=== PATIENT | male | born 1970 | race Caucasian/White ===

== ENCOUNTER 2017-04-14 19:53 | Emergency (ER) | payer MEDICAID ==
--- NOTE | 2017-04-14 21:04 | C.PDOC ---
History Of Present Illness 46 y/o male c/o left sided facial numbness x 1 day and paresthesia to the left arm x 1 week. pt later states he has had arm numbness "for a long time" Patient denies fever, chills, facial droop, or any other complaints. Time Seen by Provider: 04/14/17 20:39 Chief Complaint (Nursing): Weakness/Neurological Deficit History Per: Patient History/Exam Limitations: no limitations Onset/Duration Of Symptoms: Days Current Symptoms Are (Timing): Still Present Severity: Mild Recent travel outside of the [place] States: No Additional History Per: Patient Past Medical History Reviewed: Historical Data, Nursing Documentation, Vital Signs Vital Signs: Last Vital Signs Temp 97.6 F 04/14/17 22:53 Pulse 79 04/14/17 22:53 Resp 20 04/14/17 22:53 BP 156/94 H 04/14/17 22:53 Pulse Ox 97 04/14/17 23:22 Family History: States: Unknown Family Hx - Social History Hx Alcohol Use: No Hx Substance Use: No Review Of Systems Except As Marked, All Systems Reviewed And Found Negative. Constitutional: Negative for: Fever, Chills Eyes: Negative for: Vision Change Neurological: Positive for: Numbness (left sided facial numbness and paresthesia to the left arm). Negative for: Change in Speech, Other (Facial droop) Physical Exam - Physical Exam Appears: Non-toxic, No Acute Distress Skin: Warm, Dry Head: Atraumatic, Normacephalic Chest: Symmetrical Cardiovascular: Rhythm Regular, No Murmur Respiratory: Normal Breath Sounds, No Rales, No Rhonchi, No Wheezing Gastrointestinal/Abdominal: Soft, No Tenderness Neurological/Psych: Oriented x3, Normal Speech, Normal Cognition, Normal Motor, Normal Sensation, Other (No focal deficit) Gait: Steady ED Course And Treatment - Laboratory Results Result Diagrams: 04/14/17 21:03 04/14/17 21:03 O2 Sat by Pulse Oximetry: 97 (RA) Pulse Ox Interpretation: Normal Against Medical Advice - AMA Patient Left Against Medical Advice: The patient declines admission to the hospital and wishes to leave the Emergency Department. This action is against my medical advice. This decision was made with informed refusal. The patient was told that admission to the hospital is necessary. Explanation of the reasons why were discussed. The risks of leaving were explained to the patient and include, but are not limited to, worsening of known or currently unknown conditions, permanent disability and from undiagnosed or untreated conditions. The patient has the capacity to make this informed decision and understands my explanation of the current medical problem and risks of leaving. The patient voluntarily accepts these risks and signed an AMA form documenting our conversation. The patient was given the opportunity to ask questions and reconsider. The patient was encouraged to return to the Emergency Department at any time for further care. Medical Decision Making Medical Decision Making: early bells vs cva- pt reports left hand numbness not consistent with bells, however later reports this is "old" Plans: * Blood labs * CT Head w/o * CXR * IV fluids * UA ekg nsr [address] t wave changes normal intrevals 2100: requested pt be observed in hospital for mri r/o cva. refuses. signs ama. states h e 'needs to go home'. advised acute cva not excluded. pt understands rsiks and signs ama Disposition - Disposition Referrals: Rm Trinh MD [Staff Provider] - Disposition: AGAINST MEDICAL ADVICE Disposition Time: 11:20 Condition: STABLE Additional Instructions: follow up with your doctor/specialist. you are declining observation in the hospital. return to er with worsening symptoms or concerns. Prescriptions: Acyclovir [Zovirax] 400 mg PO 5XD #35 tab Prednisone 50 mg PO DAILY #5 tab Instructions: Mercado Palsy (ED), Paresthesia (ED), Against Medical Advice (ED) Forms: [facility] (Swiss) - Clinical Impression Clinical Impression: Numbness - Scribe Statement The provider has reviewed the documentation as recorded by the Scribsushant reyes All medical record entries made by the Bereniceibe were at my direction and personally dictated by me. I have reviewed the chart and agree that the record accurately reflects my personal performance of the history, physical exam, medical decision making, and the department course for this patient. I have also personally directed, reviewed, and agree with the discharge instructions and disposition.
[2017-04-14 21:06] LABS: BASO # 0.1 K/uL (0.0-0.2); BASO % 0.8 % (0.0-2.0); EOS # 0.4 K/uL (0.0-0.7); EOS % 4.2 % (0.0-4.0); HEMATOCRIT 39.3 % (35.0-51.0); LYMPH # 2.2 K/uL (1.0-4.3); LYMPH % 20.6 % (20.0-40.0); MEAN CELL VOLUME 88.9 fL (80.0-94.0); MEAN CORPUSCULAR HEMOGLOBIN 30.5 pg (27.0-31.0); MEAN CORPUSCULAR HGB CONC 34.3 g/dL (33.0-37.0); MEAN PLATELET VOLUME 9.1 fL (7.2-11.7); MONO # 0.8 K/uL (0.0-0.8); MONO % 7.1 % (0.0-10.0); NRBC % 0.1 % (0.0-2.0); RED CELL DISTRIBUTION WIDTH 13.5 % (11.5-14.5); WHITE BLOOD COUNT 10.8 K/uL (4.8-10.8)
[2017-04-14 21:14] LABS: INR 1.1
[2017-04-14 21:34] LABS: ALB/GLOB RATIO 1.2 (1.0-2.1); ALKALINE PHOSPHATASE 84 U/L (38-126); ALT/SGPT 52 U/L (21-72); AST/SGOT 25 U/L (17-59); BILIRUBIN,TOTAL 0.9 mg/dL (0.2-1.3); BLOOD UREA NITROGEN 11 mg/dL (9-20); CALCIUM 8.7 mg/dl (8.6-10.4); CARBON DIOXIDE 25 mmol/L (22-30); CHLORIDE 101 mmol/L (98-107); CHOLESTEROL 169 mg/dL (0-199); GFR AFRICAN-AMERICAN > 60; GLUCOSE,RANDOM 94 mg/dL (75-110); POTASSIUM 3.6 mmol/L (3.6-5.2); SODIUM 137 mmol/L (132-148); TOTAL PROTEIN 7.9 g/dL (6.3-8.3)
--- NOTE | 2017-04-14 21:50 | CT ---
EXAM: CT Head Without Intravenous Contrast EXAM DATE/TIME: 04/14/2017 8:43 PM CLINICAL HISTORY: 46 years old, male; Signs and symptoms; Visual disturbance and weakness, extremity; Left; Additional info: Left side numbness TECHNIQUE: Axial computed tomography images of the head/brain without intravenous contrast. All CT scans at this facility use one or more dose reduction techniques, viz.: automated exposure control; ma/kV adjustment per patient size (including targeted exams where dose is matched to indication; i.e. head); or iterative reconstruction technique. Coronal and sagittal reformatted images were created and reviewed. COMPARISON: There are no prior studies for comparison. FINDINGS: Brain: There is prominence of sulci, gyri and ventricles. There is no midline shift. There are no intra-axial or extra axial mass lesions or areas of hemorrhage. There is a prominent Virchow-Justice space on the left. Kauffman-white differentiation is maintained. Ventricles: See above. Bony structures: Cranial vault is intact. Soft tissues: unremarkable Sinuses: There is no acute sinusitis. Ears and mastoids: Middle ears and mastoids unremarkable. Orbits: Orbital contents are unremarkable. IMPRESSION: No acute intracranial abnormality
[2017-04-14 22:09] LABS: RBC URINE < 1 /hpf (0-3); URINE BILIRUBIN NEGATIVE (NEGATIVE); URINE BLOOD NEGATIVE (NEGATIVE); URINE COLOR Yellow (YELLOW); URINE GLUCOSE (UA) NORMAL (Normal); URINE KETONE NEGATIVE (NEGATIVE); URINE LEUKOCYTE ESTERASE NEG Leu/uL (Negative); URINE PROTEIN NEGATIVE (NEGATIVE); URINE UROBILINOGEN NORMAL mg/dL (0.2-1.0); WBC URINE < 1 /hpf (0-5)
[2017-04-14 22:55] VITALS: BP 156/94; PULSE 79; RESP 20; TEMP 97.6
[2017-04-14 23:20] VITALS: O2SAT 97
--- NOTE | 2017-04-15 08:41 | RAD ---
Chest x-ray single frontal view History: Weakness. Comparison: 04/14/2017 Findings: Mild venous congestion. Mild patchy increased markings in the right suprahilar region may represent confluence of shadows with ribs and vessels. Clinical correlation. Mild cardiomegaly. Mild degenerative changes in the spine. Impression: Mild venous congestion. Mild patchy increased markings in the right suprahilar region may represent confluence of shadows with ribs and vessels. Clinical correlation. Mild cardiomegaly.
== END 2017-04-14 22:55 | disposition left against medical advice (07) ==
LOC: C.ER 19:53
DX: R20.0 Anesthesia of skin (principal)

== ENCOUNTER 2017-07-17 19:35 | Emergency (ER) | payer MEDICAID ==
[2017-07-17 20:42] VITALS: RESP 20
[2017-07-17 22:40] LABS: URINE BILIRUBIN NEGATIVE (NEGATIVE); URINE BLOOD NEGATIVE (NEGATIVE); URINE CLARITY Clear (Clear); URINE COLOR Yellow (YELLOW); URINE GLUCOSE (UA) NORMAL (Normal); URINE LEUKOCYTE ESTERASE NEG Leu/uL (Negative); URINE NITRATE NEGATIVE (NEGATIVE); URINE PROTEIN NEGATIVE (NEGATIVE); URINE UROBILINOGEN NORMAL mg/dL (0.2-1.0)
[2017-07-17] MEDS ORDERED: Sodium Chloride 0.9% 1,000 ML IV ONE (22:53)
[2017-07-17] MEDS ORDERED: Sodium Chloride 0.9% 1,000 ML ONE (23:06)
[2017-07-17 23:16] LABS: BASO # 0.1 K/uL (0.0-0.2); EOS # 0.4 K/uL (0.0-0.7); EOS % 3.9 % (0.0-4.0); HEMOGLOBIN 13.5 g/dL (12.0-18.0); LYMPH # 2.8 K/uL (1.0-4.3); LYMPH % 28.1 % (20.0-40.0); MEAN CELL VOLUME 89.9 fL (80.0-94.0); MEAN CORPUSCULAR HEMOGLOBIN 31.4 pg (27.0-31.0); MEAN PLATELET VOLUME 9.3 fL (7.2-11.7); MONO % 9.6 % (0.0-10.0); NEUT # 5.7 K/uL (1.8-7.0); NEUT % 57.4 % (50.0-75.0); NRBC % 0.1 % (0.0-2.0); RBC 4.31 Mil/uL (4.40-5.90); RED CELL DISTRIBUTION WIDTH 13.9 % (11.5-14.5); WHITE BLOOD COUNT 9.9 K/uL (4.8-10.8)
[2017-07-17 23:27] LABS: ALBUMIN 4.2 g/dL (3.5-5.0); ALT/SGPT 43 U/L (21-72); AST/SGOT 23 U/L (17-59); BLOOD UREA NITROGEN 15 mg/dL (9-20); CALCIUM 9.1 mg/dl (8.6-10.4); GFR AFRICAN-AMERICAN > 60; GFR NON-AFRICAN AMERICAN > 60
--- NOTE | 2017-07-18 00:03 | CT ---
EXAM: CT Abdomen and Pelvis Without Intravenous Contrast EXAM DATE/TIME: 07/17/2017 10:55 PM CLINICAL HISTORY: 46 years old, male; Pain; Abdominal pain and other: Right flank pain; Additional info: Abd pain TECHNIQUE: Axial computed tomography images of the abdomen and pelvis without intravenous contrast. All CT scans at this facility use one or more dose reduction techniques, viz.: automated exposure control; ma/kV adjustment per patient size (including targeted exams where dose is matched to indication; i.e. head); or iterative reconstruction technique. Coronal and sagittal reformatted images were created and reviewed. COMPARISON: There are no prior studies for comparison. FINDINGS: Lower thorax: Heart size is normal. There is minimal atelectasis and scarring at the lung bases. ABDOMEN: Liver: There is fatty infiltration of the liver. Gallbladder and bile ducts: unremarkable Pancreas: Pancreas is mildly atrophic. Spleen: unremarkable Adrenals: unremarkable Kidneys and ureters: unremarkable Stomach and bowel: Stomach is partially distended. Rotation is normal. There is fluid and air throughout the small bowel. There is no obstruction. Ileocecal region is unremarkable. Appendix and terminal ileum are unremarkable. There is diverticulosis. Appendix: See stomach and bowel PELVIS: Bladder: unremarkable Reproductive: Seminal vesicles and prostate are unremarkable. ABDOMEN and PELVIS: Intraperitoneal space:There is no free air or free fluid. Bones/joints: There are degenerative changes in the osseus structures. Soft tissues: There is a small fat containing umbilical hernia. Vasculature: There are vascular calcifications. Lymph nodes: There is no pathologic adenopathy. IMPRESSION: No renal or ureteral stones or hydronephrosis; fatty liver; no CT findings of appendicitis or diverticulitis Additional nonemergent findings as described above.
--- NOTE | 2017-07-18 00:07 | C.PDOC ---
History Of Present Illness 46 year old male presents to the ED for evaluation of right mid back pain x1 week. Pain does not radiate anteriorly. Patient reports pain is exacerbated by movement and deep breath. He complains of strong smelling urine but denies dysuria or pain in groin/testicles. No cough or shortness of breath. No other acute complaints at this time. Time Seen by Provider: 07/17/17 22:42 Chief Complaint (Nursing): Back Pain History Per: Patient History/Exam Limitations: no limitations Onset/Duration Of Symptoms: Days Current Symptoms Are (Timing): Still Present Quality Of Discomfort: "Pain" Severity: Mild Recent travel outside of the [place] States: No Past Medical History Reviewed: Historical Data, Nursing Documentation, Vital Signs Vital Signs: Last Vital Signs Temp 98.1 F 07/17/17 20:36 Pulse 80 07/17/17 20:36 Resp 20 07/17/17 20:36 BP 116/71 07/17/17 20:36 Pulse Ox 96 07/18/17 00:10 Family History: States: Unknown Family Hx - Social History Hx Alcohol Use: No Hx Substance Use: No Review Of Systems Constitutional: Negative for: Fever, Chills ENT: Negative for: Ear Pain, Throat Pain Cardiovascular: Negative for: Chest Pain Respiratory: Negative for: Cough, Shortness of Breath Gastrointestinal: Negative for: Nausea, Vomiting, Abdominal Pain, Diarrhea Genitourinary: Positive for: Other (Strong smelling urine). Negative for: Dysuria, Scrotal Pain Musculoskeletal: Positive for: Back Pain Skin: Negative for: Rash Neurological: Negative for: Headache Physical Exam - Physical Exam Appears: Well, No Acute Distress Skin: Normal Color, Warm, Dry Head: Atraumatic, Normacephalic Eye(s): bilateral: Normal Inspection, PERRL, EOMI Oral Mucosa: Moist Throat: Normal Neck: Normal ROM, Supple Cardiovascular: Rhythm Regular (Rate Regular ) Respiratory: Normal Breath Sounds (no increased respiratory effort), No Rales, No Rhonchi, No Wheezing Gastrointestinal/Abdominal: Soft, No Tenderness Back: No CVA Tenderness, Other (Muscular tenderness right mid back area ) Extremity: Normal ROM, No Deformity Neurological/Psych: Oriented x3, Normal Speech ED Course And Treatment - Laboratory Results Result Diagrams: 07/17/17 23:13 07/17/17 23:13 Lab Interpretation: Normal O2 Sat by Pulse Oximetry: 96 Pulse Ox Interpretation: Normal - CT Scan/US CT abdomen and pelvis Other Rad Studies (CT/US): Read By Radiologist, Radiology Report Reviewed CT/US Interpretation: Accession No. : [id number]. Patient Name / ID : FELICIA CERDA / [id number]. Exam Date : 07/17/2017 23:20:39 ( Approved ). Study Comment : Sex / Age : M / 46Y. Creator : JACKIE LOGAN. Dictator : Straddle Bug Operator : Cooker Soda : JACKIE LOGAN. Approver2 : Report Date : 07/18/2017 00:02:00. My Comment : . [facility]. [address] [place] [address]. Tel. no. . . . Patient Name: PRASHANT DUARTE . Pt. Address: [address] [place] [address]. Rec #: [id number][place] [address]: Kacey Graves MD. Pt Order Location: [facility] : 1970 Male Age: 46 Order #: [id number]. Accession # : [id number]. Reason for exam: abd pain. . . . . . CT Scan. . . ABD PELVIS W/O PO OR IV CONT Exam Date: . . This imaging exam was performed at [facility]. EXAM: CT Abdomen and Pelvis Without Intravenous Contrast. . EXAM DATE/TIME: 07/17/2017 10:55 PM. . CLINICAL HISTORY: 46 years old, male; Pain; Abdominal pain and other: Right flank pain;. Additional info: Abd pain. . TECHNIQUE: Axial computed tomography images of the abdomen and pelvis without. intravenous contrast. All CT scans at this facility use one or more dose. reduction techniques, viz. : automated exposure control; ma/kV adjustment per. patient size (including targeted exams where dose is matched to indication;. i.e. head); or iterative reconstruction technique. Coronal and sagittal reformatted images were created and reviewed. . COMPARISON: There are no prior studies for comparison. . FINDINGS: Lower thorax: Heart size is normal. There is minimal atelectasis and. scarring at the lung bases. . ABDOMEN: Liver: There is fatty infiltration of the liver. Gallbladder and bile ducts: unremarkable. Pancreas : Pancreas is mildly atrophic. Spleen: unremarkable. Adrenals: unremarkable. Kidneys and ureters: unremarkable. Stomach and bowel: Stomach is partially distended. Rotation is normal. There. is fluid and air throughout the small bowel. There is no obstruction. Ileocecal. region is unremarkable. Appendix and terminal ileum are unremarkable. There is. diverticulosis. Appendix: See stomach and bowel. . PELVIS: Bladder: unremarkable. Reproductive: Seminal vesicles and prostate are unremarkable. . . . ABDOMEN and PELVIS: Intraperitoneal space:There is no free air or free fluid. Bones/joints: There are degenerative changes in the osseus structures. Soft tissues: There is a small fat containing umbilical hernia. Vasculature: There are vascular calcifications. . Lymph nodes: There is no pathologic adenopathy. . IMPRESSION: No renal or ureteral stones or hydronephrosis; fatty liver; no CT. findings of appendicitis or diverticulitis. . Additional nonemergent findings as described above. . Dictated By: Jackie Zabala MD., MD. Dictated Date/Time: 07/18/171. Signed By: Jackie Patel MD. Date Signed: 07/18/171. Transcribed By: [employer]. Transcribe Date/Time: 07/18/171 Reevaluation Time: 00:43 Reassessment Condition: Improved Disposition - Disposition Disposition: HOME/ ROUTINE Disposition Time: 00:43 Condition: IMPROVED Additional Instructions: Use a topical rub like [facility] [place] or Icy Hot to the area. Prescriptions: Cyclobenzaprine [Cyclobenzaprine HCl] 10 mg PO TID PRN #20 tab PRN Reason: Muscle Spasm Naproxen [Naprosyn] 1 tab PO BID PRN #25 tab PRN Reason: Pain Instructions: Low Back Pain in Adults Forms: [facility] (Kinyarwanda) - Clinical Impression Clinical Impression: Low back pain - Scribe Statement The provider has reviewed the documentation as recorded by the Scribe Martínez Powers Provider Attestation: All medical record entries made by the Scribe were at my direction and personally dictated by me. I have reviewed the chart and agree that the record accurately reflects my personal performance of the history, physical exam, medical decision making, and the department course for this patient. I have also personally directed, reviewed, and agree with the discharge instructions and disposition.
[2017-07-18 01:04] VITALS: BP 129/70; PULSE 72; TEMP 97.8; O2SAT 98
== END 2017-07-18 01:04 | disposition home or self-care (01) ==
LOC: C.ER 19:35
DX: M54.5 Low back pain (principal)
CPT/HCPCS: 74176; 80053; 81001; 85025; 96361; 96374; 99285; J1885; J7040

== ENCOUNTER 2017-08-15 18:38 | Emergency (ER) | payer MEDICAID ==
[2017-08-15 18:44] VITALS: BMI 44.3
[2017-08-15 18:46] VITALS: BP 151/90; PULSE 78; RESP 18; TEMP 98.1; O2SAT 96
[2017-08-15] MEDS ORDERED: Oxycodone/Acetaminophen 5/325 mg Tab PO STA (18:57)
[2017-08-15] MEDS ORDERED: Oxycodone/Acetaminophen 5/325 mg Tab ONE (19:09)
--- NOTE | 2017-08-15 19:49 | C.PDOC ---
History Of Present Illness 46 y/o male presents to the ER complaining of right ankle pain after he twisted his right ankle in the snow today. Patient states that he felt a "crack" in his ankle. Patient denies weakness, numbness, and other complaints. Time Seen by Provider: 08/15/17 18:54 Chief Complaint (Nursing): Lower Extremity Problem/Injury History Per: Patient History/Exam Limitations: no limitations Onset/Duration Of Symptoms: Hrs Current Symptoms Are (Timing): Still Present Severity: Moderate - Ankle/Foot Description Of Injury: Twisted (right ankle in snow) Past Medical History Reviewed: Historical Data, Nursing Documentation, Vital Signs Vital Signs: Last Vital Signs Temp 98.1 F 08/15/17 18:44 Pulse 78 08/15/17 18:44 Resp 18 08/15/17 18:44 BP 151/90 H 08/15/17 18:44 Pulse Ox 96 08/15/17 20:38 - Medical History PMH: No Chronic Diseases Surgical History: No Surg Hx Family History: States: No Known Family Hx - Social History Hx Alcohol Use: No Hx Substance Use: No - Immunization History Hx Tetanus Toxoid Vaccination: No Hx Influenza Vaccination: No Hx Pneumococcal Vaccination: No Review Of Systems Except As Marked, All Systems Reviewed And Found Negative. Musculoskeletal: Positive for: Other (right ankle pain) Neurological: Negative for: Weakness, Numbness Physical Exam - Physical Exam Appears: Non-toxic, No Acute Distress Skin: Normal Color, Warm, Dry Head: Atraumatic, Normacephalic Eye(s): bilateral: Normal Inspection Neck: Supple Chest: Symmetrical Cardiovascular: Rhythm Regular Respiratory: Normal Breath Sounds, No Rales, No Rhonchi, No Wheezing Extremity: Tenderness (tenderness to right lateral mallelous, tenderness to lateral aspect of right foot), No Deformity, No Swelling Neurological/Psych: Oriented x3, Normal Speech, Normal Motor, Normal Sensation ED Course And Treatment O2 Sat by Pulse Oximetry: 96 (RA) Pulse Ox Interpretation: Normal - CT Scan/US CT of RLE Other Rad Studies (CT/US): Read By Radiologist, Radiology Report Reviewed CT/US Interpretation: EXAM: CT Right Lower Extremity Without Intravenous Contrast, Foot. EXAM DATE/TIME: 08/15/2017 8:12 PM. CLINICAL HISTORY: 46 years old, male; Injury or trauma; Fall; Initial encounter; Swelling (edema); Foot; Right; Additional. info: Injury of foot/ankle/distal tib-fib. TECHNIQUE : Axial computed tomography images of the right foot without intravenous contrast. All CT scans at. this facility use one or more dose reduction techniques, viz.: automated exposure control; ma/kV. adjustment per patient size (including targeted exams where dose is matched to indication; i.e. head); . or iterative reconstruction technique. Coronal and sagittal reformatted images were created and reviewed. COMPARISON: There are no prior studies for comparison. FINDINGS: Bones/joints: There is minimal soft tissue swelling at the ankle greatest laterally. There is no effusion. in the ankle joint. Distal tibia and fibula are intact. Ankle mortise is maintained. The talus and. calcaneus are intact. There are calcaneal spurs. There is a small bone island in the calcaneus. There. are no midfoot fractures. Visualized portions of the forefoot is unremarkable. Soft tissues: See above. Thank you for allowing us to participate in the care of your patient. Dictated and Authenticated by: Radha Cason MD. 08/15/2017 10:05 PM Eastern Time ([place] & [place]). IMPRESSION: No fracture or effusion Progress Note: X-Ray- Right Foot shows no fracture. Patient was given Percocet. On re-examination, there was severe tenderness in the right lateral malleolus and lateral aspect of right foot. CT- Ext Lower ordered. CT was read as negative. Air cast and crutches were given. Patient will be d/ home, referral to Orthopedist given. Disposition - Disposition Referrals: Armin Brar MD [Staff Provider] - Disposition: HOME/ ROUTINE Disposition Time: 22:16 Condition: STABLE Additional Instructions: Follow up with Orthopedist within 1-2 days. Return to ED if feel worse. Prescriptions: Ibuprofen [Motrin Tab] 600 mg PO Q8 #30 tab traMADol [Ultram] 50 mg PO Q6 #20 tab Instructions: Ankle Sprain Forms: [facility] (Lao), Work Excuse - Clinical Impression Clinical Impression: Ankle sprain - PA / COSMETIC SURGEON / Resident Statement MD/DO has reviewed & agrees with the documentation as recorded. - Scribe Statement The provider has reviewed the documentation as recorded by the Melinda Chew Provider Attestation All medical record entries made by the Scribe were at my direction and personally dictated by me. I have reviewed the chart and agree that the record accurately reflects my personal performance of the history, physical exam, medical decision making, and the department course for this patient. I have also personally directed, reviewed, and agree with the discharge instructions and disposition.
--- NOTE | 2017-08-15 22:06 | CT ---
EXAM: CT Right Lower Extremity Without Intravenous Contrast, Foot EXAM DATE/TIME: 08/15/2017 8:12 PM CLINICAL HISTORY: 46 years old, male; Injury or trauma; Fall; Initial encounter; Swelling (edema); Foot; Right; Additional info: Injury of foot/ankle/distal tib-fib TECHNIQUE: Axial computed tomography images of the right foot without intravenous contrast. All CT scans at this facility use one or more dose reduction techniques, viz.: automated exposure control; ma/kV adjustment per patient size (including targeted exams where dose is matched to indication; i.e. head); or iterative reconstruction technique. Coronal and sagittal reformatted images were created and reviewed. COMPARISON: There are no prior studies for comparison. FINDINGS: Bones/joints: There is minimal soft tissue swelling at the ankle greatest laterally. There is no effusion in the ankle joint. Distal tibia and fibula are intact. Ankle mortise is maintained. The talus and calcaneus are intact. There are calcaneal spurs. There is a small bone island in the calcaneus. There are no midfoot fractures. Visualized portions of the forefoot is unremarkable. Soft tissues: See above. IMPRESSION: No fracture or effusion
--- NOTE | 2017-08-16 08:48 | RAD ---
PROCEDURE: Right Ankle Radiographs. HISTORY: Injury COMPARISON: None FINDINGS: BONES: Bone alignment and mineralization are normal. There is no acute displaced fracture or bone destruction. JOINTS: Normal. Ankle mortise maintained. Talar dome intact SOFT TISSUES: There is mild lateral soft tissue swelling. OTHER FINDINGS: None. IMPRESSION: No acute fracture or dislocation. Mild lateral soft tissue swelling.
== END 2017-08-15 22:28 | disposition home or self-care (01) ==
LOC: C.ER 18:38
DX: S93.401A Sprain of unspecified ligament of right ankle, initial encounter (principal); X50.9XXA Other and unspecified overexertion or strenuous movements or postures, initial encounter

== ENCOUNTER 2018-01-09 19:47 | Emergency (ER) | payer MEDICAID ==
[2018-01-09 19:47] VITALS: BMI 44.3
[2018-01-09 20:15] VITALS: BP 149/89; PULSE 78; RESP 20; TEMP 98.1; O2SAT 95
--- NOTE | 2018-01-09 20:54 | C.PDOC ---
History Of Present Illness 47 year old male presents to the ED c/o right upper back pain that has been intermittent for the past 8 months. Patient states he injured his back while at work 8months ago, did not follow up but has bee taking OTC medications with some relief. Patient states back pain increased over the past week and worsens with movement. Patient denies new injury, trauma, CP, SOB, headache, palpitations, weakness, numbness. Time Seen by Provider: 01/09/18 20:35 Chief Complaint (Nursing): Back Pain History Per: Patient History/Exam Limitations: no limitations Onset/Duration Of Symptoms: Intermittent Episodes (8 months) Current Symptoms Are (Timing): Still Present Quality Of Discomfort: "Pain" Previous Symptoms: Back Pain Exacerbating Factor(s): Movement Recent travel outside of the [place]: No Additional History Per: Patient Past Medical History Reviewed: Historical Data, Nursing Documentation, Vital Signs Vital Signs: Last Vital Signs Temp 98.1 F 01/09/18 20:12 Pulse 78 01/09/18 20:12 Resp 20 01/09/18 20:12 BP 149/89 01/09/18 20:12 Pulse Ox 95 01/09/18 21:04 - Medical History PMH: No Chronic Diseases Surgical History: No Surg Hx Family History: States: Unknown Family Hx - Social History Hx Alcohol Use: No Hx Substance Use: No - Immunization History Hx Tetanus Toxoid Vaccination: No Hx Influenza Vaccination: No Hx Pneumococcal Vaccination: No Review Of Systems Constitutional: Negative for: Fever, Chills Eyes: Negative for: Vision Change Cardiovascular: Negative for: Chest Pain, Palpitations Respiratory: Negative for: Cough, Shortness of Breath Gastrointestinal: Negative for: Nausea, Vomiting, Abdominal Pain Musculoskeletal: Positive for: Back Pain Skin: Negative for: Rash Neurological: Negative for: Weakness, Numbness Physical Exam - Physical Exam Appears: Non-toxic, No Acute Distress Skin: Normal Color, Warm, Dry Head: Atraumatic, Normacephalic Eye(s): bilateral: Normal Inspection Oral Mucosa: Moist Neck: Normal ROM, No Midline Cervical Tenderness, Supple Chest: Symmetrical Cardiovascular: Rhythm Regular Respiratory: Normal Breath Sounds, No Rales, No Rhonchi, No Wheezing Gastrointestinal/Abdominal: Soft, No Tenderness, No Guarding, No Rebound Back: No CVA Tenderness, No Vertebral Tenderness, Other (right sided subscapular tenderness) Extremity: Normal ROM, No Tenderness, No Swelling Neurological/Psych: Oriented x3, Normal Speech, Normal Motor, Normal Sensation Gait: Steady ED Course And Treatment O2 Sat by Pulse Oximetry: 95 (ON RA) Pulse Ox Interpretation: Normal Progress Note: Plan: - Flexeril 10 mg PO. - Motrin 600 mg PO. On reassessment , patient is resting comfortably, with improvement of back pain. Patient remains afebrile, with no bony tenderness, extremity numbness or weakness, or abdominal pain. Patient is ambulatory in the emergency department with no signs of discomfort. Patient was advised to follow up with physician/clinic in 1-2 days. Disposition - Disposition Referrals: Jono Delaney MD [Staff Provider] - Disposition: HOME/ ROUTINE Disposition Time: 20:51 Condition: STABLE Additional Instructions: Please follow up with PMD Take medications as directed Return to ER if worse Prescriptions: Cyclobenzaprine [Cyclobenzaprine HCl] 10 mg PO BID #10 tab Naproxen [Naprosyn] 1 tab PO BID PRN #20 tab PRN Reason: Pain Instructions: Muscle Strain (DC) Forms: [employer] (Persian) - Clinical Impression Clinical Impression: Right subscapular pain - PA / [employer] / Resident Statement MD/DO has reviewed & agrees with the documentation as recorded. - Scribe Statement The provider has reviewed the documentation as recorded by the Scribe Craig Sorto All medical record entries made by the Scribe were at my direction and personally dictated by me. I have reviewed the chart and agree that the record accurately reflects my personal performance of the history, physical exam, medical decision making, and the department course for this patient. I have also personally directed, reviewed, and agree with the discharge instructions and disposition.
== END 2018-01-09 21:12 | disposition home or self-care (01) ==
LOC: C.ER 19:47
DX: M54.89 Other dorsalgia (principal)